=== PATIENT | female | born 1965 ===

== ENCOUNTER 2022-10-16 22:50 | Emergency (ER) | payer SELFPAY ==
[2022-10-16] MEDS ORDERED: Dexamethasone 4 MG TAB ONE (23:27)
== END 2022-10-16 23:30 | disposition home or self-care (01) ==
LOC: BURERS 22:50
DX: U07.1 COVID-19 (principal); J44.9 Chronic obstructive pulmonary disease, unspecified; F17.210 Nicotine dependence, cigarettes, uncomplicated
CPT/HCPCS: 99283; J8540